=== PATIENT | male | born 1945 | race Caucasian/White ===

== ENCOUNTER → 2019-09-02 | Day surgery (SDC) | payer OTHER ==
[~2019-09-02] VITALS: Ht 188 cm; Wt 106.6 kg
[~2019-09-02] MED LIST: AML5T GT; BUPIVACAINE 0.25% INJ 50ML VIAL ONE; DexAMETHasone SOD PHOS 10MG/1ML VIAL INJ ONE; HYDROmorphone HCL 2 MG/ML VL IV PRN; KETOROLAC TROMETH 30 MG/ML 1ML VIAL IV ONE; KETOROLAC TROMETH 30 MG/ML 1ML VIAL ONE; LABETALOL HCL 5 MG/ML 4ML SYRINGE IV PRN; LIDOCAINE 1% HCL (LOCAL ANESTH.) INJ 20ML MDV ONE; LISI-275 PO; MEPERIDINE HCL (25 MG/ML) 1ML VIAL ONE; MIDAZOLAM HCL 1MG/1ML-2 ML VIAL IV PRN; MIDAZOLAM HCL 1MG/1ML-2 ML VIAL ONE; MORPHINE SULFATE 4 MG/ML SYR/VIAL IV PRN; ONDANSETRON HCL 4 MG/2 ML VIAL IV PRN; PROPOFOL 10 MG/ML 20 ML IV ONE; ceFAZolin 1GM/50ML 100 ML IV ONE; ePHEDrine SULFATE 50 MG/ML AMP IV PRN; fentaNYL CITRATE 100 MCG/2 ML VL ONE
[2019-09-02 10:47] VITALS: BP 132/67
== END | disposition home or self-care (01) ==
LOC: SUR 06:08
PROVIDERS: ATTEND Orthopaedic Surgery Adult Reconstructive Orthopaedic Surgery
DX: G56.01 Carpal tunnel syndrome, right upper limb (principal); G56.21 Lesion of ulnar nerve, right upper limb; E78.00 Pure hypercholesterolemia, unspecified; I12.9 Hypertensive chronic kidney disease with stage 1 through stage 4 chronic kidney disease, or unspecified chronic kidney disease; N18.3 Chronic kidney disease, stage 3 (moderate); E78.5 Hyperlipidemia, unspecified; E66.9 Obesity, unspecified; J45.909 Unspecified asthma, uncomplicated; Z79.899 Other long term (current) drug therapy; Z87.891 Personal history of nicotine dependence; Z96.651 Presence of right artificial knee joint; Z98.890 Other specified postprocedural states; Z68.31 Body mass index [BMI] 31.0-31.9, adult; Z98.49 Cataract extraction status, unspecified eye
CPT/HCPCS: 29848; J0690; J1100; J1885; J2001; J2175; J2250; J2704; J3010; J3490

== ENCOUNTER 2024-09-14 06:57 | Inpatient (IN) | payer OTHER ==
[~2024-09-14] VITALS: Ht 188 cm; Wt 106.8 kg
[2024-09-14] VITALS (11 sets, daily range): BP systolic 118–133; BP diastolic 51–62; PULSE 55–89; RESP 12–20; TEMP 98.2–98.3; O2SAT 93–99
[~2024-09-14 06:57] MED LIST changes: -BUPIVACAINE 0.25% INJ 50ML VIAL ONE; -DexAMETHasone SOD PHOS 10MG/1ML VIAL INJ ONE; -HYDROmorphone HCL 2 MG/ML VL IV PRN; -KETOROLAC TROMETH 30 MG/ML 1ML VIAL IV ONE; -KETOROLAC TROMETH 30 MG/ML 1ML VIAL ONE; -LABETALOL HCL 5 MG/ML 4ML SYRINGE IV PRN; -LIDOCAINE 1% HCL (LOCAL ANESTH.) INJ 20ML MDV ONE; -MEPERIDINE HCL (25 MG/ML) 1ML VIAL ONE; -MIDAZOLAM HCL 1MG/1ML-2 ML VIAL IV PRN; -MIDAZOLAM HCL 1MG/1ML-2 ML VIAL ONE; -MORPHINE SULFATE 4 MG/ML SYR/VIAL IV PRN; -ONDANSETRON HCL 4 MG/2 ML VIAL IV PRN; -PROPOFOL 10 MG/ML 20 ML IV ONE; -ceFAZolin 1GM/50ML 100 ML IV ONE; -ePHEDrine SULFATE 50 MG/ML AMP IV PRN; -fentaNYL CITRATE 100 MCG/2 ML VL ONE
[2024-09-14 07:47] LABS: Eosinophils # (auto) 0 10 ^3/uL (0-0.8); Eosinophils % (auto) 0.3 % (0.0-7.0); Hemoglobin 8.3 g/dL (13.5-17.5); Mean Corpuscular Volume 85.1 fL (80.0-100.0); Neutrophils # (auto) 11.7 10 ^3/uL (1.6-8.6); Nucleated Red Blood Cells % 0.1 %
[2024-09-14 07:48] LABS: Basophils # (auto) 0 10 ^3/uL (0-0.2); Basophils % (auto) 0.1 % (0.0-2.0); Hematocrit 23.9 % (41.0-53.0); Lymphocytes # (auto) 0.6 10 ^3/uL (0.4-5.4); Lymphocytes % (auto) 4.5 % (10.0-50.0); Mean Corpuscular Hemoglobin 29.5 pg (28.0-32.0); Mean Corpuscular Hgb Conc. 34.6 g/dL (32.0-36.0); Monocytes # (auto) 1.8 10 ^3/uL (0-1.3); Monocytes % (auto) 12.6 % (0.0-12.0); Neutrophils % (auto) 82.5 % (37.0-80.0); Platelet Count (auto) 126 10^3/uL (140-450); Red Blood Cells 2.81 10^6/uL (4.5-5.90); Red Cell Distribution Width 31.3 % (11.8-14.3); White Blood Cell 14.1 10^3/uL (4.4-10.8)
[2024-09-14 07:58] LABS: Alanine Aminotransferase 26 U/L (7-40); Albumin 4.1 g/dL (3.2-4.8); Alkaline Phosphatase 72 U/L (46-116); Anion Gap 6 (5-15); Aspartate Aminotransferase 30 U/L (13-40); BUN/Creatinine Ratio 14.7 (10.0-20.0); Bilirubin, Total 0.6 mg/dL (0.2-1.0); Blood Urea Nitrogen 20 mg/dL (9-23); Calcium 9.5 mg/dL (8.7-10.4); Carbon Dioxide 26 mmol/L (20-31); Chloride 98 mmol/L (98-107); Glucose 119 mg/dL (74-106); Potassium 4.9 mmol/L (3.5-5.1); Sodium 130 mmol/L (136-145)
--- NOTE | 2024-09-14 08:01 | DVH ---
EXAM: XR Chest, 2 Views CLINICAL INDICATION: DYSPNEA TECHNIQUE: Frontal and lateral views of the chest. COMPARISON: None FINDINGS: LUNGS AND PLEURAL SPACES: Pulmonary venous congestion. No consolidation. No pneumothorax. HEART: Unremarkable. No cardiomegaly. MEDIASTINUM: Unremarkable. Normal mediastinal contour. BONES/JOINTS: Unremarkable. No acute fracture. OTHER FINDINGS: . . IMPRESSION: Pulmonary venous congestion. HS:Y
--- NOTE | 2024-09-14 08:10 | ED.PDOC ---
SOB-HPI HPI Comments 79y M who presents to the ED for chief complaint of shortness of breath. Pt states he has been having shortness of breath for the past 2 weeks. Pt states he has been having productive cough and states it got progressively worse since last night PM. Pt states he has also been having chest pain for the past 1 week with noted exacerbation of pain with associated cough. Pt in the ED, has noted 02 sat of 92% on room air with BP of 132/56. Pt has noted history of HTN and states he is complaint with his medications. Pt denies any recent sick contacts. Pt otherwise denies any other symptoms at this time. Chief Complaint: Shortness of Breath Time Seen by MD: 08:06 Reviewed notes: Medications, Allergies Information Source: Patient Mode of Arrival: Ambulatory Brought in by: self Past Medical History PAST MEDICAL HISTORY: HTN Surgical History (Other): knee replacement bilateral, carpal tunnel Family History Family History: Unknown Social History Smoker: Non-Smoker Alcohol: Occasionally Drugs: Denies Drug Use Lives In: Home Constitutional: denies: chills, diaphoresis, fatigue, fever, malaise, sweats, weakness, others EENTM: denies: blurred vision, double vision, ear bleeding, ear discharge, ear drainage, ear pain, ear ringing, eye pain, eye redness, hearing loss, mouth pain, mouth swelling, nasal discharge, nose bleeding, nose congestion, nose pain, photophobia, tearing, throat pain, throat swelling, voice changes, others Respiratory: reports: cough, SOB at rest, shortness of breath; denies: hemoptysis, orthopnea, SOB with excertion, stridor, wheezing, others Cardiovascular: reports: chest pain; denies: dizzy spells, diaphoresis, Dyspnea on exertion, edema, irregular heart beat, left arm pain, lightheadedness, palpitations, PND, syncope, others Gastrointestinal: denies: abdomen distended, abdominal pain, blood streaked bowels, constipated, diarrhea, dysphagia, difficulty swallowing, hematemesis, melena, nausea, poor appetite, poor fluid intake, rectal bleeding, rectal pain, vomiting, others Genitourinary: denies: burning, dysuria, flank pain, frequency, hematuria, inco ntinence, penile discharge, penile sore, pain, testicle pain, testicle swelling, urgency, others Neurological: denies: dizziness, fainting, headache, left sided numbness, left sided weakness, numbness, paresthesia, pre-existing deficit, right sided numbness, right sided weakness, seizure, speech problems, tingling, tremors, weakness, others Musculoskeletal: denies: back pain, gout, joint pain, joint swelling, muscle pain, muscle stiffness, neck pain, others Integumetry: denies: bruises, change in color, change in hair/nails, dryness, laceration, lesions, lumps, rash, wounds, others Allergic/Immunocompromised: denies: Difficulty Healing, Frequent Infections, Hives, Itching, others Hematologic/Lymphatic: denies: anemia, blood clots, easy bleeding, easy bruising, swollen glands, others Endocrine: denies: excessive hunger, excessive sweating, excessive thirst, excessive urination, flushing, intolerance to cold, intolerance to heat, unexplained weight gain, unexplained weight loss, others Psychiatric: denies: anxiety, bipolar disorder, depression, hopeless, panic disorder, schizophrenia, sleepless, suicidal, others All Other Systems: Reviewed and Negative Physical Exam General Appearance: Moderate Distress HEENT: Normal ENT Inspection, Pale Conjuntivae (L), Pale Conjuntivae (R), PERRL/EOMI Neck: Full Range of Motion, Non-Tender Respiratory: Crackles, Decreased Breath Sounds, Expiration, Inspiration, No Respiratory Distress Cardiovascular: No Edema, No JVD, No Murmur, No Gallop, Normal Peripheral Pulses, Regular Rate/Rhythm Breast Exam: Deferred Gastrointestinal: No Organomegaly, Non Tender, No Pulsatile Mass, Normal Bowel Sounds, Soft Genitalia: Deferred Pelvic: Deferred Rectal: Deferred Extremities: No calf tenderness, Normal capillary refill, Normal inspection, Normal range of motion, Non-tender, No pedal edema Neurologic: Alert, helper coordinator II-XII nml as Tested, No Motor Deficits, Normal Affect, Normal Mood, No Sensory Deficits Cerebellar Function: Normal Reflexes: Normal Skin: Dry, Pallor, Warm Peripheral Pulses: 1+ carotid (R), 1+ carotid (L) Lymphatic: No Adenopathy EKG EKG : Pulse Rate (adult): 85 [place]: Normal Cardiac Rhythm: NSR, PVC's Was a procedure done? Was a procedure done?: No Differential Dx Differential Diagnosis: Bronchitis, CHF, COPD, Hypertension, Hyponatremia, Myocardial infarction, Pneumonia, Pulmonary Embolism, Respiratory Distress, URI Comments acute coronary syndrome, electrolyte imbalance X-Ray, Labs, Meds, VS Vital Signs Date Time Temp Pulse Resp B/P (MAP) Pulse Ox O2 Delivery O2 Flow Rate FiO2 09/14/24 12:00 99.1 66 126/56 (79) 94 99.1 09/14/24 09:47 85 09/14/24 08:46 71 13 133/58 (83) 95 09/14/24 08:46 71 13 95 Nasal Cannula* 2 28 09/14/24 08:27 125/50 09/14/24 07:35 18 92 Room Air* 0 21 09/14/24 07:31 85 09/14/24 07:26 98.9 85 18 132/56 (81) 92 Lab Test 09/14/24 10:27 09/14/24 09:00 09/14/24 08:29 09/14/24 08:20 Range/Units Troponin I High Sensitivity 12 11 </=54 ng/L Urine Color Light-yellow Yellow Urine Clarity Clear Clear Urine pH 6.0 5.0-9.0 Urine Specific [place] 1.008 1.001-1.035 Urine Protein Negative Negative Urine Ketones Negative Negative Urine Blood Negative Negative /uL Urine Nitrite Negative Negative Urine Bilirubin Negative Negative Urine Urobilinogen Normal Negative mg/dL Urine Leukocyte Esterase Negative Negative /uL Urine RBC None seen 0 - 3 /hpf Urine WBC <1 0 - 3 /hpf Urine Squamous Epithelial Cells None seen <5 /hpf Urine Bacteria None seen None Seen /hpf Urine Glucose Normal Normal mg/dL SARS-CoV-2 Antigen (Rapid) Negative NEGATIVE Test 09/14/24 07:27 Range/Units White Blood Count 14.1 H 4.4-10.8 10^3/uL Red Blood Count 2.81 L 4.5-5.90 10^6/uL Hemoglobin 8.3 L 13.5-17.5 g/dL Hematocrit 23.9 L 41.0-53.0 % Mean Corpuscular Volume 85.1 80.0-100.0 fL Mean Corpuscular Hemoglobin 29.5 28.0-32.0 pg Mean Corpuscular Hemoglobin Concent 34.6 32.0-36.0 g/dL Red Cell Distribution Width 31.3 H 11.8-14.3 % Platelet Count 126 L 140-450 10^3/uL Mean Platelet Volume 9.1 6.9-10.8 fL Neutrophils (%) (Auto) 82.5 H 37.0-80.0 % Lymphocytes (%) (Auto) 4.5 L 10.0-50.0 % Monocytes (%) (Auto) 12.6 H 0.0-12.0 % Eosinophils (%) (Auto) 0.3 0.0-7.0 % Basophils (%) (Auto) 0.1 0.0-2.0 % Neutrophils # (Auto) 11.7 H 1.6-8.6 10 ^3/uL Lymphocytes # (Auto) 0.6 0.4-5.4 10 ^3/uL Monocytes # (Auto) 1.8 H 0-1.3 10 ^3/uL Eosinophils # (Auto) 0 0-0.8 10 ^3/uL Basophils # (Auto) 0 0-0.2 10 ^3/uL Nucleated Red Blood Cells 0.1 % Platelet Estimate Decreased Anisocytosis (manual) Marked Tear Drop Cells Few Ovalocytes Moderate Prothrombin Time 11.1 9.3-11.8 sec Prothrombin Time INR 1.05 0.9-1.15 Activated Partial Thromboplast Time 31.3 24.5-34.5 SEC D-Dimer, Quantitative 2.30 H 0.0-0.49 mg/L FEU Sodium Level 130 L 136-145 mmol/L Potassium Level 4.9 3.5-5.1 mmol/L Chloride Level 98 98-107 mmol/L Carbon Dioxide Level 26 20-31 mmol/L Anion Gap 6 5-15 Blood Urea Nitrogen 20 9-23 mg/dL Creatinine 1.36 H 0.700-1.30 mg/dL Glomerular Filtration Rate Calc 52 >90 mL/min BUN/Creatinine Ratio 14.7 10.0-20.0 Serum Glucose 119 H 74-106 mg/dL Calcium Level 9.5 8.7-10.4 mg/dL Magnesium Level 1.7 1.6-2.6 mg/dL Total Bilirubin 0.6 0.2-1.0 mg/dL Aspartate Amino Transferase (AST) 30 13-40 U/L Alanine Aminotransferase (ALT) 26 7-40 U/L Alkaline Phosphatase 72 46-116 U/L Troponin I High Sensitivity 11 </=54 ng/L B-Type Natriuretic Peptide 265.75 0-100 pg/mL Total Protein 7.0 5.7-8.2 g/dL Albumin 4.1 3.2-4.8 g/dL Thyroid Stimulating Hormone (TSH) 2.89 0.55-4.78 uIU/mL Current Medications Medications (Trade) Dose Ordered Sig/Sonu Route Start Time Stop Time Status Last Admin Sodium Chloride 1,000 ml @ 150 mls/hr Q6H40M ONCE IV 09/14/24 08:00 09/14/24 14:39 09/14/24 08:16 Furosemide (Lasix Injection) 20 mg ONCE ONCE IV 09/14/24 08:30 09/14/24 08:31 DC 09/14/24 08:27 Spironolactone (Aldactone) 25 mg ONCE ONCE PO 09/14/24 08:30 09/14/24 08:31 DC 09/14/24 08:26 Enoxaparin Sodium (Lovenox) 60 mg ONCE ONCE SC 09/14/24 10:00 09/14/24 10:01 DC 09/14/24 11:38 [place] [id number] Ph: [phone] DIAGNOSTIC IMAGING Diagnostic Imaging Report : [id number] Signed PATIENT: ADRIANA SARMIENTO ACCT: [id number] UNIT: [id number] : 1945 LOC: ER ROOM / BED: / AGE / SEX: 79 / M ADM STATUS: REG ER SERVICE 0745 ORDERING PHYSICIAN: JESSICA SHELLEY MD PROCEDURE(s): CXR2 - CHEST TWO VIEWS ROUTINE REASON: DYSPNEA ORDER NUMBER(s): [id number], ACCESSION NUMBER(s): [id number] EXAM: XR Chest, 2 Views CLINICAL INDICATION: DYSPNEA TECHNIQUE: Frontal and lateral views of the chest. COMPARISON: None FINDINGS: LUNGS AND PLEURAL SPACES: Pulmonary venous congestion. No consolidation. No pneumothorax. HEART: Unremarkable. No cardiomegaly. MEDIASTINUM: Unremarkable. Normal mediastinal contour. BONES/JOINTS: Unremarkable. No acute fracture. OTHER FINDINGS: . . IMPRESSION: Pulmonary venous congestion. HS:Y ATED BY: CALE VAZQUEZ MD DICTATED DATE/TIME: 09/14/24757 SIGNED BY: CALE VAZQUEZ MD SIGNED DATE/TIME: 09/14/24757 CC: [place] [id number] Ph: [phone] DIAGNOSTIC IMAGING Diagnostic Imaging Report : [id number] Signed PATIENT: ADRIANA SARMIENTO ACCT: [id number] UNIT: [id number] : 1945 LOC: ER ROOM / BED: / AGE / SEX: 79 / M ADM STATUS: REG ER SERVICE 6 ORDERING PHYSICIAN: JESSICA SHELLEY MD PROCEDURE(s): VQ - NM VQ SCAN REASON: PULMONARY EMBOLISM ORDER NUMBER(s): [id number], ACCESSION NUMBER(s): [id number] NUCLEAR MEDICINE VENTILATION/PERFUSION LUNG SCAN. INDICATION: Dyspnea TECHNIQUE: Following intravenous demonstration of 6 millicuries of technetium 99m MAA, and inhalation of 40 mCi of Tc 99m DTPA scintigrams were obtained in multiple projections of the lungs. FINDINGS: There is normal uptake of radionuclide on both the ventilation and perfusion portions of the examination. No mismatched perfusion defects are demonstrated. Uptake is normally homogeneous. IMPRESSION: Low probability for PE. ATED BY: PRIMO ISLAS MD DICTATED DATE/TIME: 09/14/241115 SIGNED BY: PRIMO ISLAS MD SIGNED DATE/TIME: 09/14/241115 CC: X-Ray, Labs, Meds, VS Comment Course in the emergency department eventful patient came in because of shortness of breath sudden onset and history of hypertension Chest x-ray shows pulmonary vascular congestion Electrocardiogram normal sinus rhythm at 85 with PVCs [place] [id number] with 82% neutrophils H&H 8.3 and 23.9 CMP GFR at 52 criteria with three six Troponin 11 and 11 Platelet count 126 Urine negative INR 1.05 D-dimer 2.30 Magnesium 1.7 BNP 266.75 TSH 2.89 COVID-19 negative Patient will be admitted Dr. Garcia will be consulted Time of 1ST Reevaluation: 08:45 Reevaluation 1ST: Unchanged Time of 2ND Reevaluation: 09:39 Reevaluation 2ND: Unchanged Patient Education/Counseling: Diagnosis, Treatment Family Education/Counseling: No Family Present Departure 1 Departure Time of Disposition: 09:41 Impression: Primary Impression: Acute dyspnea Additional Impressions: Anemia Thrombocytopenia Elevated d-dimer Pulmonary vascular congestion History of hypertension Lab test negative for COVID-19 virus CKD (chronic kidney disease) stage 3, GFR 30-59 ml/min Qualified Codes: N18.31 - Chronic kidney disease, stage 3a Disposition: 09 ADMITTED INPATIENT Admit to: Tele Condition: Fair Critical Care Note Critical Care Time?: No Stability Stability form required: Yes Unstable for transfer: Telemetry monitoring (Telemetry monitoring required), Requires medication (Requires Med for stabilization) Heart Score Heart Score: Heart Score Response (Comments) Value History Slightly Suspicious 0 EKG Normal 0 Age >65 2 Risk Factors 1 or 2 risk factors 1 Troponin Normal limit 0 Total 3 I personally scribed for JESSICA SHELLEY MD ([email or web address]) on 09/14/24 at 08:10. Electronically submitted by Agapito Barnes ([email or web address]). I personally scribed for JESSICA SHELLEY MD ([email or web address]) on 09/14/24 at 12:48. Electronically submitted by Agapito Barnes ([employer] JESSICA SHELLEY MD Sep 14, 2024 08:10
[2024-09-14] MEDS: SODIUM CHLORIDE 0.9% 1,000 ML IV ONE (08:16)
[2024-09-14] MEDS: SPIRONOLACTONE 25 MG TAB PO ONE (08:26)
[2024-09-14] MEDS: FUROSEMIDE 20 MG/2 ML VIAL IV ONE (08:27)
[2024-09-14 08:33] LABS: Platelet Estimate Decreased
[2024-09-14 08:34] LABS: Anisocytosis Marked; Ovalocytes MODERATE; Tear Drop Cells FEW
[2024-09-14 09:00] LABS: COVID19 ANTIGEN SOFIA FIA NEGATIVE (NEGATIVE)
[2024-09-14 09:03] LABS: INR 1.05 (0.9-1.15); Partial Thromboplastin Time 31.3 SEC (24.5-34.5); Prothrombin Time 11.1 sec (9.3-11.8)
[2024-09-14 09:12] LABS: Urine Bacteria None Seen /hpf (None Seen)
[2024-09-14 09:18] LABS: Urine Blood Negative /uL (Negative); Urine Clarity Clear (Clear); Urine Color Light-Yellow (Yellow); Urine Protein, UAD Negative (Negative); Urine Specific Gravity 1.008 (1.001-1.035); Urine Urobilinogen Normal (Negative); Urine WBC <1 /hpf (0 - 3)
--- NOTE | 2024-09-14 11:18 | DVH ---
NUCLEAR MEDICINE VENTILATION/PERFUSION LUNG SCAN. INDICATION: Dyspnea TECHNIQUE: Following intravenous demonstration of 6 millicuries of technetium 99m MAA, and inhalati on of 40 mCi of Tc 99m DTPA scintigrams were obtained in multiple projections of the lungs. FINDINGS: There is normal uptake of radionuclide on both the ventilation and perfusion portions of the examinat ion. No mismatched perfusion defects are demonstrated. Uptake is normally homogeneous. IMPRESSION: Low probability for PE.
[2024-09-14] MEDS: ENOXAPARIN SOD 60 MG/0.6 ML SYRINGE SC ONE (11:38)
[2024-09-14] MEDS ORDERED: MORPHINE SULFATE INJ 2 MG/ml SYRG IV PRN (14:00)
[2024-09-14] MEDS ORDERED: NITROGLYCERIN 0.4 MG SL TAB SL PRN (14:00)
[2024-09-14] MEDS: IPRATROPIUM BROM 0.5 MG/2.5ML INH SOL NEB SCH (14:21)
[2024-09-14] MEDS: IPRATROPIUM BROM 0.5 MG/2.5ML INH SOL ONE (14:23)
[2024-09-14] MEDS: ALBUTEROL SULF 2.5 MG/0.5ML(0.5%) NEB SOLN NEB SCH (14:23)
[2024-09-14] MEDS: ALBUTEROL SULF 2.5 MG/0.5ML(0.5%) NEB SOLN ONE (14:24)
[2024-09-14] MEDS: methylPREDNISolone SOD SUCC 40 MG/ML VL IV SCH (14:38)
[2024-09-14] MEDS: ASPirin 81 mg TAB PO ONE (14:38)
[2024-09-14] MEDS: FAMOTIDINE 20 MG TAB PO SCH (20:43)
[2024-09-14 22:09] LABS: % Iron Saturation 6.9 % (20-55)
[2024-09-14] MEDS: BUDESONIDE (INHALATION) 0.5 MG/2 ML NEB NEB SCH (22:40)
[2024-09-15] VITALS (19 sets, daily range): BP systolic 104–124; BP diastolic 55–59; PULSE 65–90; RESP 14–20; TEMP 97.3–98.2; O2SAT 92–100
--- NOTE | 2024-09-15 00:57 | DVHHP2 ---
Admitting Diagnosis: Acute respiratory failure, UTI History of Present Illness History Source: Patient Exam Limitations: No limitations HPI Mr. Brandi Frost is an 79y M with a history of hypertension who presents with a chief complaint of shortness of breath. Pt states he has been having shortness of breath for the past 2 weeks. Pt states he has been having productive cough and states it got progressively worse since last night PM. Pt states he has also been having chest pain for the past 1 week with noted exacerbation of pain with associated cough. Patient reports his shortness of breath is worse with exertion.Patient denies chest pain, nausea, vomiting, dizziness, headaches. Patient admitted for further evaluation. Home Meds Reported Medications Lisinopril (Lisinopril) 5 Mg Tab, 5 MG PO DAILY for 30 Days, MG 08/29/19 Amlodipine Besylate (NORVASC TABLET) 5 Mg Tb, 5 MG GT DAILY, TAB 08/29/19 Past Medical History Cardiac: HTN Pulmonary: No pertinent Hx Central Nervous System: No pertinent Hx GI: No pertinent Hx Hemotology/Oncology: No pertinent Hx Hepatobiliary: No pertinent Hx Psychiatric: No pertinent Hx Musculoskeletal: No pertinent Hx Rheumotologic: No pertinent Hx Infectious Disease: No peritnent Hx ENT: No pertinent Hx Renal/: No pertinent Hx Endocrine: No pertinent Hx Dermatology: No pertinent Hx Patient Family History: Tumor G8 MOTHER Smoker: No Hx (Negative) Alocohol: None Drugs: None Review of Systems Constitutional: No symptom reported Ears, Nose, & Throat: No symptom reported Eyes: No symptom reported Pulmonary/Respiratory: Dyspnea, Cough, Orthopnea Cardiovascular: No symptom reported Gastrointestinal: No symptom reported Genitourinary: No symptom reported Musculoskeletal: No symptom reported Skin: No symptom reported Psychiatric: No symptom reported Endocrine: No symptom reported Hemotologic/Lymphatic: No symptom reported H&P Exam Vital Signs Vital Signs Date Time Temp Pulse Resp B/P (MAP) Pulse Ox O2 Delivery O2 Flow Rate FiO2 09/14/24 22:48 65 20 99 09/14/24 20:55 98.3 133/62 (85) 98.3 09/14/24 20:00 Nasal Cannula* 2 28 General Appeara: Well developed, Well nourished, Normal Appearance Head Exam: Normal inspection Neck Exam: Normal inspection, Non-tender, Normal alignment Eye Exam: bilateral eye Normal inspection, bilateral eye PERRL, bilateral eye EOMI Ear Exam: bilateral ear Auricle normal Nasal Exam: Normal inspection Mouth: Normal Inspection Pulmonary/Respiratory: Normal inspection, Normal breath sounds, Chest non-tende r Cardiovascular/Chest: Normal inspection, Regular rate, Normal Rhythm Peripheral Pulses: 2+ dorsalis pedis (R), 2+ dorsalis pedis (L), 2+ Radial (R), 2+ Radial (L) Abdominal Exam: Normal bowel sounds, Soft, No tenderness Rectal Exam: Deferred MANAGER LOCATION Exam: Normal hearing, Normal speech, PERRL Neuro/Mental St: Alert, Oriented Appearance: Appropriate appearance, Appropriate insight Eye contact/ Speech: Cooperative, Good eye contact, Normal speech Thoughts/Psych: Normal thought pattern Skin Exam: Normal inspection, Normal color, Warm/dry Labs/Xrays Labs Test 09/14/24 21:28 09/14/24 10:27 09/14/24 09:00 09/14/24 08:20 Range/Units Iron Level 14 L 65-175 ug/dL Total Iron Binding Capacity 204 L 250-425 ug/dL Percent Iron Saturation 6.9 L 20-55 % Ferritin 1087.0 H 22-322 ng/mL Troponin I High Sensitivity 12 </=54 ng/L Urine Color Light-yellow Yellow Urine Clarity Clear Clear Urine pH 6.0 5.0-9.0 Urine Specific [place] 1.008 1.001-1.035 Urine Protein Negative Negative Urine Ketones Negative Negative Urine Blood Negative Negative /uL Urine Nitrite Negative Negative Urine Bilirubin Negative Negative Urine Urobilinogen Normal Negative mg/dL Urine Leukocyte Esterase Negative Negative /uL Urine RBC None seen 0 - 3 /hpf Urine WBC <1 0 - 3 /hpf Urine Squamous Epithelial Cells None seen <5 /hpf Urine Bacteria None seen None Seen /hpf Urine Glucose Normal Normal mg/dL SARS-CoV-2 Antigen (Rapid) Negative NEGATIVE Test 09/14/24 07:27 Range/Units White Blood Count 14.1 H 4.4-10.8 10^3/uL Red Blood Count 2.81 L 4.5-5.90 10^6/uL Hemoglobin 8.3 L 13.5-17.5 g/dL Hematocrit 23.9 L 41.0-53.0 % Mean Corpuscular Volume 85.1 80.0-100.0 fL Mean Corpuscular Hemoglobin 29.5 28.0-32.0 pg Mean Corpuscular Hemoglobin Concent 34.6 32.0-36.0 g/dL Red Cell Distribution Width 31.3 H 11.8-14.3 % Platelet Count 126 L 140-450 10^3/uL Mean Platelet Volume 9.1 6.9-10.8 fL Neutrophils (%) (Auto) 82.5 H 37.0-80.0 % Lymphocytes (%) (Auto) 4.5 L 10.0-50.0 % Monocytes (%) (Auto) 12.6 H 0.0-12.0 % Eosinophils (%) (Auto) 0.3 0.0-7.0 % Basophils (%) (Auto) 0.1 0.0-2.0 % Neutrophils # (Auto) 11.7 H 1.6-8.6 10 ^3/uL Lymphocytes # (Auto) 0.6 0.4-5.4 10 ^3/uL Monocytes # (Auto) 1.8 H 0-1.3 10 ^3/uL Eosinophils # (Auto) 0 0-0.8 10 ^3/uL Basophils # (Auto) 0 0-0.2 10 ^3/uL Nucleated Red Blood Cells 0.1 % Platelet Estimate Decreased Anisocytosis (manual) Marked Tear Drop Cells Few Ovalocytes Moderate Prothrombin Time 11.1 9.3-11.8 sec Prothrombin Time INR 1.05 0.9-1.15 Activated Partial Thromboplast Time 31.3 24.5-34.5 SEC D-Dimer, Quantitative 2.30 H 0.0-0.49 mg/L FEU Sodium Level 130 L 136-145 mmol/L Potassium Level 4.9 3.5-5.1 mmol/L Chloride Level 98 98-107 mmol/L Carbon Dioxide Level 26 20-31 mmol/L Anion Gap 6 5-15 Blood Urea Nitrogen 20 9-23 mg/dL Creatinine 1.36 H 0.700-1.30 mg/dL Glomerular Filtration Rate Calc 52 >90 mL/min BUN/Creatinine Ratio 14.7 10.0-20.0 Serum Glucose 119 H 74-106 mg/dL Calcium Level 9.5 8.7-10.4 mg/dL Magnesium Level 1.7 1.6-2.6 mg/dL Total Bilirubin 0.6 0.2-1.0 mg/dL Aspartate Amino Transferase (AST) 30 13-40 U/L Alanine Aminotransferase (ALT) 26 7-40 U/L Alkaline Phosphatase 72 46-116 U/L B-Type Natriuretic Peptide 265.75 0-100 pg/mL Total Protein 7.0 5.7-8.2 g/dL Albumin 4.1 3.2-4.8 g/dL Thyroid Stimulating Hormone (TSH) 2.89 0.55-4.78 uIU/mL Assessment/Plan Problem List: (1) Acute dyspnea Plan 79 yo male with known history of hypertension presents to the hospital with shortness of breath. Patient found to have 1. Acute respiratory failure 2. Urinary tract infection 3. Acute anemia Admit telemetry unit Pulmonology consultation, Duo neb treatments, IV steroid 2D echocardiogram IV antibiotic Ceftriaxone DVT ppx Lovenox GI ppx Pepcid Stool for Occult blood, iron panel, ferritin level Supplemental oxygen as needed to keep 02 saturations above 92% Discussed all above with patient who verbalizes agreement and understanding of care plan. All questions were answered. Discussed assessment and care plan with supervising MD. Plan discussed with: Patient, Other Code Visit Code Visit Total Time (mins): 45 Additional Comments Additional Comments Additional Comments Patient is seen and evaluated by nurse practitioner. Patient seen by me and chart is reviewed. I agree with the nurse practitioner's evaluation, documentation, assessment and care plan as outlined. LUIS PULIDO Sep 15, 2024 00:57 AYLIN ALVAREZ MD Sep 15, 2024 15:50
[2024-09-15 05:33] LABS: Basophils # (auto) 0 10 ^3/uL (0-0.2); Basophils % (auto) 0.1 % (0.0-2.0); Eosinophils # (auto) 0 10 ^3/uL (0-0.8); Hemoglobin 7.4 g/dL (13.5-17.5); Lymphocytes # (auto) 0.5 10 ^3/uL (0.4-5.4); Monocytes # (auto) 0.4 10 ^3/uL (0-1.3)
[2024-09-15 05:37] LABS: Hematocrit 21.7 % (41.0-53.0); Lymphocytes % (auto) 4.4 % (10.0-50.0); Mean Corpuscular Hemoglobin 29.2 pg (28.0-32.0); Mean Corpuscular Hgb Conc. 33.9 g/dL (32.0-36.0); Neutrophils # (auto) 11.2 10 ^3/uL (1.6-8.6); Neutrophils % (auto) 92.5 % (37.0-80.0); Platelet Count (auto) 151 10^3/uL (140-450); Red Blood Cells 2.52 10^6/uL (4.5-5.90); White Blood Cell 12.1 10^3/uL (4.4-10.8)
[2024-09-15 05:40] LABS: Red Cell Distribution Width 31.4 % (11.8-14.3)
[2024-09-15 05:42] LABS: Chloride 100 mmol/L (98-107); Potassium 4.9 mmol/L (3.5-5.1); Sodium 133 mmol/L (136-145)
[2024-09-15 05:43] LABS: Anion Gap 7 (5-15); Calcium 9.5 mg/dL (8.7-10.4); Carbon Dioxide 26 mmol/L (20-31)
[2024-09-15 05:48] LABS: BUN/Creatinine Ratio 18.6 (10.0-20.0); Blood Urea Nitrogen 22 mg/dL (9-23); Glucose 172 mg/dL (74-106)
[2024-09-15 07:13] LABS: Anisocytosis Marked; Ovalocytes MODERATE; Platelet Estimate Adequate; Tear Drop Cells FEW
[2024-09-15] MEDS: cefTRIAXone 1GM/50ML D5W 50 ML IV SCH (08:32)
[2024-09-15] MEDS: ENOXAPARIN SOD 40 MG/0.4 ML SYRINGE SC SCH (10:18)
[2024-09-15] MEDS: ASPirin 81 mg TAB PO SCH (10:18)
--- NOTE | 2024-09-15 13:16 | DVHSR ---
APPROVED REPORT EXAM: LIMITED Two-dimensional and M-mode echocardiogram with Doppler and color Doppler. Blood Pressure: 112/55 mmHg INDICATION SOB RISK FACTORS Obesity: Height: 6' 2", Weight: 236 DIMENSIONS LVDd6.1 (3.8-5.7cm)LA (2D)4.5 (1.9-4.0cm)Aortic Root3.5 (2.0-3.7cm) LVDs4.3 (2.5-4.0cm)LA (MM) (1.9-4.0cm)Aortic Cusp Exc1.6 (1.5-2.0cm) EF (%) 55.0 (55-70%)Rt. Atrium4.5 (1.9-4.0cm)Asc. Aorta cm IVSd1.3 (0.7-1.1cm)RV (D) (1.8-2.4cm) PWd1.2 (0.7-1.1cm) Mitral Valve MitralMitral Stenosis E wave1.10m/sMV Mean GR.mmHg A wave0.90m/sMV Peak GR.mmHg E/A ratio1.22D MVAcm2 Aortic Valve Aortic ValveAortic Stenosis V11.00m/Jarad Mean GR.8mmHg V22.00m/Jarad Peak GR.17mmHg LVOT Diameter2.6 (1.8-2.4cm)Doppler AVA2.65cm2 Pulmonic Valve V20.80m/s Tricuspid Valve TR Velocity3.00m/s [id number] Other Information Quality : Technically LimitedRhythm : Technically limited study due to body habitus. Conclusion Normal left ventricular size and dimension. Normal left ventricular systolic function estimated ejec tion fraction 55%. There is a grade 2 diastolic dysfunction. Normal right ventricular size and dimension. Normal right ventricular systolic function. Moderately elevated right ventricular systolic [id number] mm of mercury. Borderline dilated right and left atria. The aortic valve is mildly thickened and sclerotic. Normal mitral valve structure and function. Normal tricuspid valve structure function. The pulmonary valve is grossly normal. No pericardial effusion.
--- NOTE | 2024-09-15 17:28 | DVHHP ---
ADMIT DATE: 09/15/2024 PULMONARY CONSULTATION REASON FOR CONSULTATION: Shortness of breath. HISTORY OF PRESENT ILLNESS: The patient is an 79-year-old gentleman who was having shortness of breath for 1 week, gradually got worse. He was admitted to hospital for further workup and evaluation. He denies any orthopnea or PND. He denies any chest pain. There is no wheezing. He denies any significant cough or expectoration. Denies any upper respiratory symptoms. Denies any pedal edema. No recent weight gain or weight loss. PAST MEDICAL HISTORY: Hypertension. Denies any known COPD, asthma, or emphysema. Was not on any inhalers or oxygen at home. Denies any history of coronary artery disease, congestive heart failure. Denies any strokes. Denies any cancers. Denies any liver or kidney problems. Denies any previous history of DVT or pulmonary embolism. REVIEW OF SYSTEMS: Unrevealing except as noted above. ALLERGIES: None. SOCIAL HISTORY: Quit smoking over 40 years ago. Denies any alcohol or drug use. FAMILY HISTORY: Noncontributory. MEDICATIONS: Noted. PHYSICAL EXAMINATION: VITAL SIGNS: Stable, afebrile, heart rate 76, respiratory rate 16, blood pressure is 120/60, saturations were 98% on 2 liters. NECK: Supple. No JVD. CHEST: Slightly diminished air entry at bases. No wheezing, no rales. COR: S1, S2. No murmurs, no gallops, no rubs were noted. ABDOMEN: Soft, nontender. No organomegaly. No guarding, rigidity, rebound, or tenderness. EXTREMITIES: No edema or clubbing. NEUROLOGIC: Awake, oriented, moving all extremities. LABORATORY WORK: WBC 12, hematocrit is 21, platelet count is 151, rest was noted. Serum chemistries were significant for sodium 133, potassium 4.9, others were noted. The ferritin level was 1087. BNP was 265. LFTs largely unremarkable. TSH was 2.89. Urinalysis was unremarkable. COVID antigen test was negative. The patient had a chest x-ray, which shows mild pulmonary venous congestion. V/Q scan was low probability. IMPRESSION: History of shortness of breath. Also, has developed anemia as pulmonary venous congestion. Possibility of fluid overload. Other possibilities discussed with the patient. Low risk for pulmonary embolism. Echocardiogram has been done, but the results are pending. Also, need to exclude cardiac causes. Recommend continue current medications. Follow cardiac evaluation. We will also assess for pulmonary artery hypertension. Evaluate for causes of anemia. Can contribute to shortness of breath as well. PLAN: We will continue current management. The patient has received bronchodilators, but has not noticed any significant improvement. Can change steroids to p.o. and taper over next few days. Plan discussed with the patient. Thank you for asking me to see this patient. Dr. Cowart will resume pulmonary care in the morning. MD JUAN Paz/KENRICK TID: [id number] RECEIPT: [id number]
[2024-09-16] VITALS (10 sets, daily range): BP systolic 119–126; BP diastolic 50–69; PULSE 56–78; RESP 16–18; TEMP 36.7; O2SAT 92–100
[2024-09-16 05:20] LABS: Basophils # (auto) 0 10 ^3/uL (0-0.2); Eosinophils # (auto) 0 10 ^3/uL (0-0.8); Hemoglobin 7.4 g/dL (13.5-17.5); Lymphocytes # (auto) 0.6 10 ^3/uL (0.4-5.4); Monocytes # (auto) 0.7 10 ^3/uL (0-1.3); Monocytes % (auto) 4.5 % (0.0-12.0); Nucleated Red Blood Cells % 0.1 %
[2024-09-16 05:23] LABS: Basophils % (auto) 0.2 % (0.0-2.0); Hematocrit 22.2 % (41.0-53.0); Lymphocytes % (auto) 3.9 % (10.0-50.0); Mean Corpuscular Hemoglobin 28.6 pg (28.0-32.0); Mean Corpuscular Hgb Conc. 33.3 g/dL (32.0-36.0); Neutrophils % (auto) 91.4 % (37.0-80.0); Platelet Count (auto) 169 10^3/uL (140-450); Red Blood Cells 2.58 10^6/uL (4.5-5.90); White Blood Cell 15.4 10^3/uL (4.4-10.8)
[2024-09-16 07:39] LABS: Ovalocytes MODERATE; Tear Drop Cells MANY
[2024-09-16 07:40] LABS: Anisocytosis Marked; Platelet Estimate Adequate
[2024-09-16] MEDS: ASCORBIC ACID 500 MG TAB PO SCH (09:41)
[2024-09-16] MEDS: FERROUS SULFATE 300 MG/5 ML ORAL LIQ PO SCH (10:24)
--- NOTE | 2024-09-16 12:20 | ECG ---
[facility] Test Date: 2024-09-14 Test Time: 07:31:06 Pat Name: ADRIANA SARMIENTO Department: ED Room: [facility]0T A Gender: M [employer]: NITHYA : 1945 Requested By: JESSICA SHELLEY Order Number: [id number] Reading MD: Ritchie Weston Measurements Intervals [place] Rate: 85 P: 23 AL: 171 QRS: 7 QRSD: 95 T: 7 QT: 370 QTc: 440 Interpretive Statements Sinus rhythm Ventricular premature complex Low voltage, precordial leads Electronically Signed On 09-19-2024 10:12:45 PST by Ritchie Weston Please click the below link to view image of tracing.
[2024-09-16] MEDS ORDERED: IRON100T PO (13:20)
[2024-09-16] MEDS ORDERED: ALBU108A5 IN (13:20)
[2024-09-16] MEDS ORDERED: DOXY100C79 PO (13:20)
--- NOTE | 2024-09-16 13:21 | DVHDS2 ---
Discharge Summary Date of Admission Sep 14, 2024 at 13:58 Date of Discharge: Sep 16, 2024 Labs/Diagnostic Data: Laboratory Results Test 09/16/24 04:15 09/15/24 19:13 09/15/24 04:48 09/14/24 21:28 White Blood Count 15.4 10^3/uL (4.4-10.8) Red Blood Count 2.58 10^6/uL (4.5-5.90) Hemoglobin 7.4 g/dL (13.5-17.5) Hematocrit 22.2 % (41.0-53.0) Mean Corpuscular Volume 86.0 fL (80.0-100.0) Mean Corpuscular Hemoglobin 28.6 pg (28.0-32.0) Mean Corpuscular Hemoglobin Concent 33.3 g/dL (32.0-36.0) Red Cell Distribution Width 32.0 % (11.8-14.3) Platelet Count 169 10^3/uL (140-450) Mean Platelet Volume 9.3 fL (6.9-10.8) Neutrophils (%) (Auto) 91.4 % (37.0-80.0) Lymphocytes (%) (Auto) 3.9 % (10.0-50.0) Monocytes (%) (Auto) 4.5 % (0.0-12.0) Eosinophils (%) (Auto) 0.0 % (0.0-7.0) Basophils (%) (Auto) 0.2 % (0.0-2.0) Neutrophils # (Auto) 14.0 10 ^3/uL (1.6-8.6) Lymphocytes # (Auto) 0.6 10 ^3/uL (0.4-5.4) Monocytes # (Auto) 0.7 10 ^3/uL (0-1.3) Eosinophils # (Auto) 0 10 ^3/uL (0-0.8) Basophils # (Auto) 0 10 ^3/uL (0-0.2) Nucleated Red Blood Cells 0.1 % Platelet Estimate Adequate Poikilocytosis (manual) Marked Anisocytosis (manual) Marked Tear Drop Cells Many Ovalocytes Moderate [place] Cells Moderate Schistocytes Few Stool Occult Blood Negative (Negative) Stool Occult Blood Sample #3 (Negative) Sodium Level 133 mmol/L (136-145) Potassium Level 4.9 mmol/L (3.5-5.1) Chloride Level 100 mmol/L (98-107) Carbon Dioxide Level 26 mmol/L (20-31) Anion Gap 7 (5-15) Blood Urea Nitrogen 22 mg/dL (9-23) Creatinine 1.18 mg/dL (0.700-1.30) Glomerular Filtration Rate Calc 62 mL/min (>90) BUN/Creatinine Ratio 18.6 (10.0-20.0) Serum Glucose 172 mg/dL (74-106) Calcium Level 9.5 mg/dL (8.7-10.4) Iron Level 14 ug/dL (65-175) Total Iron Binding Capacity 204 ug/dL (250-425) Percent Iron Saturation 6.9 % (20-55) Ferritin 1087.0 ng/mL (22-322) Test 09/14/24 10:27 09/14/24 09:00 09/14/24 08:20 09/14/24 07:27 Troponin I High Sensitivity 12 ng/L (</=54) Urine Color Light-yellow (Yellow) Urine Clarity Clear (Clear) Urine pH 6.0 (5.0-9.0) Urine Specific [place] 1.008 (1.001-1.035) Urine Protein Negative (Negative) Urine Ketones Negative (Negative) Urine Blood Negative /uL (Negative) Urine Nitrite Negative (Negative) Urine Bilirubin Negative (Negative) Urine Urobilinogen Normal mg/dL (Negative) Urine Leukocyte Esterase Negative /uL (Negative) Urine RBC None seen /hpf (0 - 3) Urine WBC <1 /hpf (0 - 3) Urine Squamous Epithelial Cells None seen /hpf (<5) Urine Bacteria None seen /hpf (None Seen) Urine Glucose Normal mg/dL (Normal) SARS-CoV-2 Antigen (Rapid) Negative (NEGATIVE) Prothrombin Time 11.1 sec (9.3-11.8) Prothrombin Time INR 1.05 (0.9-1.15) Activated Partial Thromboplast Time 31.3 SEC (24.5-34.5) D-Dimer, Quantitative 2.30 mg/L FEU (0.0-0.49) Magnesium Level 1.7 mg/dL (1.6-2.6) Total Bilirubin 0.6 mg/dL (0.2-1.0) Aspartate Amino Transferase (AST) 30 U/L (13-40) Alanine Aminotransferase (ALT) 26 U/L (7-40) Alkaline Phosphatase 72 U/L (46-116) B-Type Natriuretic Peptide 265.75 pg/mL (0-100) Total Protein 7.0 g/dL (5.7-8.2) Albumin 4.1 g/dL (3.2-4.8) Thyroid Stimulating Hormone (TSH) 2.89 uIU/mL (0.55-4.78) Other Laboratory Tests 09/16/24 04:15 09/15/24 04:48 Final Diagnosis/Problems List BRONCHITIS, ANEMIA Discharge Disposition: Home Discharge Instruct/Medications Diet: Consistent carbohydrate, Cardiac 2g Na,low cholest Activity: No Restrictions, As Tolerated Follow Up/Referral: PRIMARY DOCTOR 2 WEEKS FOR WORKUP OF ANEMIA Medications: PRESCRIBED Discharge Statement: "Patient was advised to return to the ER or call 911 if any headaches, dizziness, shortness of breath, chest pain, abdominal pain, bleeding, fevers, or worsening of medical condition. Patient was counseled about treatment plan, medications, possible side effects, patientverbalized understanding. All questions were answered to the best of my ability. This discharge took greater then 30 minutes in planning, reviewing documentation, counseling the patient, and discussing with other team members." ASSESSMENT ASSESSMENT Assessment BRONCHITIS, ANEMIA AYLIN ALVAREZ MD Sep 16, 2024 13:21
--- NOTE | 2024-09-16 19:30 | DVHINCON2 ---
Date of service: Sep 16, [address] Dean Reason for Consultation Shortness of breath History of Present Illness 79-year-old man history of smoking presented with shortness of breath for the last week prior to admission. He denies any chest pain. No wheezing. He denies any cough or phlegm production. He denies no lower extremity swelling. Pulmonary consultation is called for evaluation of shortness of breath. Review of systems: 14 point review of systems is negative unless otherwise noted above. Past medical history: Hypertension. Obesity Past surgical history: None mentioned in prior surgeries. Medications: Reviewed Allergies: No known drug allergies. Family history: No family history of premature CAD. No family history of lung disease Social history: Ex-smoker. Quit over 40 years ago. No alcohol or illicit drug use. Family History: Tumor G8 MOTHER Allergies: Coded Allergies: NO KNOWN ALLERGIES (Unverified , 08/29/19) Home Meds Active Scripts Iron-Vitamin C (IRON 100/C) 1 Tab Tab, 1 TAB PO MWF, #30 TAB Prov:AYLIN ALVAREZ MD 09/16/24 Albuterol Sulfate (Albuterol Sulfate Hfa) 108 Mcg/Act Aer, 108 MCG IN Q6HPRN PRN, #1 AER Prov:AYLIN ALVAREZ MD 09/16/24 Doxycycline (Monohydrate) (Doxycycline) 100 Mg Cap, 100 MG PO BID, #6 CAP Prov:AYLIN ALVAREZ MD 09/16/24 Reported Medications Lisinopril (Lisinopril) 5 Mg Tab, 5 MG PO DAILY for 30 Days, MG 08/29/19 Amlodipine Besylate (NORVASC TABLET) 5 Mg Tb, 5 MG GT DAILY, TAB 08/29/19 Current Medications Current Medications Medications (Trade) Dose Ordered Sig/Sonu Route PRN Reason Start Time Stop Time Status Last Admin Ascorbic Acid (Vitamin C Tablet) 500 mg DAILY PO 09/16/24 10:00 09/16/24 14:09 DC 09/16/24 09:41 Ferrous Sulfate 300 mg DAILY PO 09/16/24 10:00 09/16/24 14:09 DC 09/16/24 10:24 Vital Signs Vital Signs Date Time Temp Pulse Resp B/P (MAP) Pulse Ox O2 Delivery O2 Flow Rate FiO2 11/4/24 13:40 36.7 09/16/24 09:46 60 16 99 09/16/24 09:40 Room Air* 0 21 09/16/24 09:00 119/69 (86) Physical Exam Gen.: Patient lying in bed in no apparent distress. He is breathing comfortably on room air. Head: Normocephalic, atraumatic Eyes: EOMI/PERRLA. Ears: Normal hearing. Normal anatomy. Neck/trachea: Trachea midline, supple. Nose: Normal external anatomy. Mouth: Moist mucous membranes. Chest: Fair air entry bilaterally. No wheezing or rhonchi. Cardio vascular: Positive S1, positive S2. Regular rate and rhythm. Abdomen: Positive bowel sounds in all 4 quadrants. Soft, non-tender, non- distended. : Deferred. Rectal: Deferred Skin: Warm, dry. Extremities: 2+ radial pulses bilaterally. No lower extremity edema. Neuro: Awake, alert, oriented x3. No gross motor or sensory deficits. Cranial nerves II through XII intact. Gait not assessed. Labs/Diagnostic Data Labs Test 09/16/24 04:15 09/15/24 19:13 09/15/24 04:48 09/14/24 21:28 Range/Units White Blood Count 15.4 #H 4.4-10.8 10^3/uL Red Blood Count 2.58 L 4.5-5.90 10^6/uL Hemoglobin 7.4 L 13.5-17.5 g/dL Hematocrit 22.2 L 41.0-53.0 % Mean Corpuscular Volume 86.0 80.0-100.0 fL Mean Corpuscular Hemoglobin 28.6 28.0-32.0 pg Mean Corpuscular Hemoglobin Concent 33.3 32.0-36.0 g/dL Red Cell Distribution Width 32.0 H 11.8-14.3 % Platelet Count 169 140-450 10^3/uL Mean Platelet Volume 9.3 6.9-10.8 fL Neutrophils (%) (Auto) 91.4 H 37.0-80.0 % Lymphocytes (%) (Auto) 3.9 L 10.0-50.0 % Monocytes (%) (Auto) 4.5 0.0-12.0 % Eosinophils (%) (Auto) 0.0 0.0-7.0 % Basophils (%) (Auto) 0.2 0.0-2.0 % Neutrophils # (Auto) 14.0 H 1.6-8.6 10 ^3/uL Lymphocytes # (Auto) 0.6 0.4-5.4 10 ^3/uL Monocytes # (Auto) 0.7 0-1.3 10 ^3/uL Eosinophils # (Auto) 0 0-0.8 10 ^3/uL Basophils # (Auto) 0 0-0.2 10 ^3/uL Nucleated Red Blood Cells 0.1 % Platelet Estimate Adequate Poikilocytosis (manual) Marked Anisocytosis (manual) Marked Tear Drop Cells Many Ovalocytes Moderate [place] Cells Moderate Schistocytes Few Stool Occult Blood Negative Negative Stool Occult Blood Sample #3 Negative Sodium Level 133 L 136-145 mmol/L Potassium Level 4.9 3.5-5.1 mmol/L Chloride Level 100 98-107 mmol/L Carbon Dioxide Level 26 20-31 mmol/L Anion Gap 7 5-15 Blood Urea Nitrogen 22 9-23 mg/dL Creatinine 1.18 0.700-1.30 mg/dL Glomerular Filtration Rate Calc 62 >90 mL/min BUN/Creatinine Ratio 18.6 10.0-20.0 Serum Glucose 172 H 74-106 mg/dL Calcium Level 9.5 8.7-10.4 mg/dL Iron Level 14 L 65-175 ug/dL Total Iron Binding Capacity 204 L 250-425 ug/dL Percent Iron Saturation 6.9 L 20-55 % Ferritin 1087.0 H 22-322 ng/mL Test 09/14/24 10:27 09/14/24 09:00 09/14/24 08:20 09/14/24 07:27 Range/Units Troponin I High Sensitivity 12 </=54 ng/L Urine Color Light-yellow Yellow Urine Clarity Clear Clear Urine pH 6.0 5.0-9.0 Urine Specific [place] 1.008 1.001-1.035 Urine Protein Negative Negative Urine Ketones Negative Negative Urine Blood Negative Negative /uL Urine Nitrite Negative Negative Urine Bilirubin Negative Negative Urine Urobilinogen Normal Negative mg/dL Urine Leukocyte Esterase Negative Negative /uL Urine RBC None seen 0 - 3 /hpf Urine WBC <1 0 - 3 /hpf Urine Squamous Epithelial Cells None seen <5 /hpf Urine Bacteria None seen None Seen /hpf Urine Glucose Normal Normal mg/dL SARS-CoV-2 Antigen (Rapid) Negative NEGATIVE Prothrombin Time 11.1 9.3-11.8 sec Prothrombin Time INR 1.05 0.9-1.15 Activated Partial Thromboplast Time 31.3 24.5-34.5 SEC D-Dimer, Quantitative 2.30 H 0.0-0.49 mg/L FEU Magnesium Level 1.7 1.6-2.6 mg/dL Total Bilirubin 0.6 0.2-1.0 mg/dL Aspartate Amino Transferase (AST) 30 13-40 U/L Alanine Aminotransferase (ALT) 26 7-40 U/L Alkaline Phosphatase 72 46-116 U/L B-Type Natriuretic Peptide 265.75 0-100 pg/mL Total Protein 7.0 5.7-8.2 g/dL Albumin 4.1 3.2-4.8 g/dL Thyroid Stimulating Hormone (TSH) 2.89 0.55-4.78 uIU/mL Assessment Impression: Shortness of breath Ruled out pulmonary embolism Obesity with a BMI of 30.2 Anemia Pulmonary hypertension, right ventricular systolic pressure 44 mmHg Plan: V/q scan low prob for PE. Echo report reviewed. Left ventricular ejection fraction 55%. Grade 2 diastolic dysfunction. Right ventricular systolic pressure 44 mmHg. Recommend outpatient follow up for ongoing management of pulmonary hypertension. On room air Continue bronchodilators Continue Pulmicort twice daily Complete antibiotic course IV steroids Monitor hemoglobin level Iron supplementation DVT prophylaxis Recommend follow up in two weeks in Pulmonary Clinic. Prognosis: Poor given multiple comorbidities. Rest of plan per hospitalist and other consultants. Thank you Dr. Dean for allowing me to participate in this patient's care. Further recommendations will depend on patient's clinical course. Please do not hesitate to contact me if you have any questions or concerns. This medical document was created using an electronic medical record system with [employer] system. Although this document has been carefully reviewed, there may still be some phonetic and typographical errors. These areas are purely typographical due to imperfections of the software programs, and do not reflect any compromise in the patient's medical care. Plan discussed with: Other (RN, MD) ELYSSA MORA MD Sep 16, 2024 19:30
== END 2024-09-16 14:00 | disposition home or self-care (01) | DRG 189 ==
LOC: ER 06:57 → TELE 13:58 → TELE-WESTW 15:33
PROVIDERS: ADMIT Hospitalist; ATTEND Hospitalist
DX: J96.00 Acute respiratory failure, unspecified whether with hypoxia or hypercapnia (principal); N39.0 Urinary tract infection, site not specified; D64.9 Anemia, unspecified; J40 Bronchitis, not specified as acute or chronic; D69.6 Thrombocytopenia, unspecified; N18.31 Chronic kidney disease, stage 3a; I12.9 Hypertensive chronic kidney disease with stage 1 through stage 4 chronic kidney disease, or unspecified chronic kidney disease; Z20.822 Contact with and (suspected) exposure to COVID-19; E66.9 Obesity, unspecified; I27.20 Pulmonary hypertension, unspecified; Z87.891 Personal history of nicotine dependence; Z68.30 Body mass index [BMI] 30.0-30.9, adult; Z96.653 Presence of artificial knee joint, bilateral; Z79.899 Other long term (current) drug therapy
CPT/HCPCS: 36415; 71046; 78582; 80048; 80053; 81001; 82270; 82728; 83540; 83550; 83735; 83880; 84443; 84484; 85025; 85379; 85610; 85730; 87426; 93005; 93306; 94640; 97163; G0378